=== PATIENT | male | born 1990 | race African-American/Black ===

== ENCOUNTER 2017-05-05 13:57 | Emergency (ER) | payer MEDICAID ==
[~2017-05-05] VITALS: Ht 175.3 cm; Wt 75.0 kg
[2017-05-05] MEDS ORDERED: KETOROLAC 60MG/2ML VIAL IM ONE (14:45)
[2017-05-05 15:00] VITALS: BP 116/59
== END 2017-05-05 15:57 | disposition home or self-care (01) ==
LOC: ER 14:05
DX: R10.9 Unspecified abdominal pain (principal); Z93.3 Colostomy status; Z98.890 Other specified postprocedural states
CPT/HCPCS: 96372; 99283; J1885